=== PATIENT | male | born 1975 | race Caucasian/White ===

== ENCOUNTER 2019-09-18 09:30 | Emergency (ER) | payer MEDICAID ==
[~2019-09-18] VITALS: Ht 175.3 cm; Wt 113.4 kg
[2019-09-18 09:44] VITALS: Ht 175.3 cm; Wt 113.4 kg
[2019-09-18 10:47] LABS: BASOPHIL % 0.5 % (0-2); PLATELET COUNT 154 x10^3mcL (130-400)
[2019-09-18 10:52] LABS: CALCIUM 8.5 mg/dL (8.5-10.1); CARBON DIOXIDE 28.2 mmol/L (21-32); CHLORIDE SERUM 101 mmol/L (98-107); CREATININE SERUM 1.2 mg/dL (0.7-1.3); GFR1 > 60 mL/min; GLUCOSE SERUM 96 mg/dL (74-106); POTASSIUM SERUM 3.9 mmol/L (3.5-5.1); SODIUM SERUM 137 mmol/L (136-145)
[2019-09-18 10:56] LABS: ALBUMIN 3.8 g/dL (3.4-5.0); ALKALINE PHOSPHATASE 94 U/L (46-116); ALT/SGPT 56 U/L (16-63); AMYLASE 47 U/L (25-115); AST/SGOT 32 U/L (15-37); BILIRUBIN TOTAL 0.73 mg/dL (0.20-1.00); LIPASE 105 IU/L (73-393); TOTAL PROTEIN, SERUM 7.7 g/dL (6.4-8.2)
[2019-09-18 11:10] LABS: microscopic required? NO
[2019-09-18 11:14] LABS: urine erythrocyte NEGATIVE (NEGATIVE)
[2019-09-18 13:04] VITALS: BP 124/86
[2019-09-18 14:47] LABS: AMPHETAMINE QUAL UR NONE DETECTED (See below)
== END 2019-09-18 13:04 | disposition home or self-care (01) ==
LOC: ED 09:30
PROVIDERS: Specialist
DX: K76.0 Fatty (change of) liver, not elsewhere classified (principal); F10.20 Alcohol dependence, uncomplicated; Z98.890 Other specified postprocedural states; Y90.9 Presence of alcohol in blood, level not specified
CPT/HCPCS: 36415; J1885

== ENCOUNTER 2019-11-07 09:03 | Emergency (ER) | payer SELFPAY ==
[~2019-11-07] VITALS: Ht 175.3 cm; Wt 113.4 kg
[2019-11-07 09:10] VITALS: BP 123/88; Ht 175.3 cm; Wt 113.4 kg
== END 2019-11-07 09:41 | disposition home or self-care (01) ==
LOC: ED 09:03
DX: J40 Bronchitis, not specified as acute or chronic (principal); R51 Headache; Z87.09 Personal history of other diseases of the respiratory system; Z98.890 Other specified postprocedural states